=== PATIENT | male | born 1995 ===

== ENCOUNTER 2022-12-22 11:50 | Emergency (ER) | payer SELFPAY ==
[~2022-12-22] VITALS: Ht 165.1 cm; Wt 63.6 kg
[2022-12-22 11:55] VITALS: BP 135/93; PULSE 75; RESP 14; TEMP 98; O2SAT 99
== END 2022-12-22 16:07 | disposition left against medical advice (07) ==
LOC: ER 11:51
DX: T78.40XA Allergy, unspecified, initial encounter (principal); Z53.21 Procedure and treatment not carried out due to patient leaving prior to being seen by health care provider; X58.XXXA Exposure to other specified factors, initial encounter
CPT/HCPCS: 99281